=== PATIENT | female | born 1945 | race Caucasian/White ===

== ENCOUNTER 2023-10-11 15:37 | Emergency (ER) | payer BC ==
[~2023-10-11] VITALS: Ht 165.1 cm; Wt 65.8 kg
[~2023-10-11 15:37] MED LIST: ATORVASTATIN CA20 MG PO; CARVEDILOL12.5 MG PO; FLUOXETINE HCL20 MG PO; HYDRALAZINE HC100 MG PO; HYDROCHLOROTHIA25 MG PO; LEVOTHYROXINE88 MCG PO; METFORMIN HCL1000 MG PO; NIFEDIPINE ER30 M1 PO; OLMESARTAN MEDO40 MG PO
[2023-10-11] MEDS ORDERED: HYDROCODONE/APAP 5MG-325MG TAB PO STA (16:15)
[2023-10-11] MEDS ORDERED: ONDANSETRON HCL INJ 2MG/ML 2ML 2 MG/ML VIAL IV STA (19:25)
[2023-10-11] MEDS ORDERED: Morphine 4mg INJECTION 4 MG/ML INJ IM ONE (19:30)
[2023-10-11] MEDS ORDERED: ONDANSETRON HCL 4 MG ORAL DISINTEGRATING TAB ONE (19:40)
[2023-10-11] MEDS ORDERED: HYDROCODON-ACE1 EA11 PO (20:33)
[2023-10-11 20:52] VITALS: BP 170/66; PULSE 69; O2SAT 100
[2023-10-12] MEDS ORDERED: CARVEDILOL 12.5 MG TAB PO SCH (09:00)
== END 2023-10-11 20:54 | disposition home or self-care (01) ==
LOC: ER 15:55
DX: M25.552 Pain in left hip (principal); M25.562 Pain in left knee; I16.0 Hypertensive urgency; I10 Essential (primary) hypertension; E11.9 Type 2 diabetes mellitus without complications; J44.9 Chronic obstructive pulmonary disease, unspecified; E78.5 Hyperlipidemia, unspecified; E03.9 Hypothyroidism, unspecified; F41.9 Anxiety disorder, unspecified; Z95.5 Presence of coronary angioplasty implant and graft
CPT/HCPCS: 72192; 73700 ×2; 99284; J2270; J2405; Q0162